=== PATIENT | male | born 1980 | race Caucasian/White ===

== ENCOUNTER 2018-08-03 22:07 | Emergency (ER) | payer MEDICAID, OTHER ==
[2018-08-03 22:15] VITALS: BP 177/104
[2018-08-03] MEDS ORDERED: DOXYcycline CAP(*) 100 MG PO ONE (22:28)
--- NOTE | 2018-08-03 22:28 | ED ---
Bite Injury/Animal - HPI Summary HPI Summary: 38-year-old male presents with tick bite to left thigh today. States he removed the tick from his arm but has head still present on left thigh. denies any rash. no fevers or chills. - History of Current Complaint Chief Complaint: EDGeneral Stated Complaint: TICK PER PT Time Seen by Provider: 08/03/18 22:17 Pain Intensity: 0 - Allergies/Home Medications Allergies/Adverse Reactions: Allergies Allergy/AdvReac Type Severity Reaction Status Date / Time No Known Allergies Allergy Verified 08/03/18 22:11 Home Medications: Home Medications NK [No Home Medications Reported] 08/03/18 [History Confirmed 08/03/18] PMH/Surg Hx/FS Hx/Imm Hx Endocrine/Hematology History: Denies: Hx Anticoagulant Therapy Cardiovascular History: Denies: Hx Myocardial Infarction Infectious Disease History: No Infectious Disease History: Denies: Traveled Outside the [place] in Last 30 Days - Family History Known Family History: Positive: Non-Contributory - Social History Alcohol Use: Occasionally Substance Use Type: Reports: None Review of Systems Negative: Fever Negative: Chest Pain Negative: Shortness Of Breath Positive: Other - tick bite left thigh All Other Systems Reviewed And Are Negative: Yes Physical Exam Triage Information Reviewed: Yes Vital Signs On Initial Exam: Initial Vitals Temp Pulse Resp BP Pulse Ox 99.9 F 93 18 177/104 98 08/03/18 22:10 08/03/18 22:10 08/03/18 22:10 08/03/18 22:10 08/03/18 22:10 Vital Signs Reviewed: Yes Appearance: Positive: Well-Appearing Skin: Positive: Warm, Dry, Other - tick head present in left thigh Head/Face: Positive: Normal Head/Face Inspection ENT: Positive: Pharynx normal Respiratory/Lung Sounds: Positive: Clear to Auscultation, Breath Sounds Present Cardiovascular: Positive: Normal, RRR Musculoskeletal: Positive: Normal Neurological: Positive: Normal Psychiatric: Positive: Normal Diagnostics - Vital Signs Vital Signs Temp Pulse Resp BP Pulse Ox 08/03/18 22:10 99.9 F 93 18 177/104 98 - Laboratory Lab Statement: Any lab studies that have been ordered have been reviewed, and results considered in the medical decision making process. Bite Injury Course/Dx - Course Course Of Treatment: 38-year-old male presents with tick bite to left thigh today. States he removed the tick from his arm but has head still present on left thigh. denies any rash. no fevers or chills. on exam has tick bite present on left thigh with head in place. removed head as best could with the scapula. will give prophylactic dose doxycycline. patient understands agrees with plan. - Diagnoses Differential Diagnosis/HQI/PQRI: Positive: Other - tick, lyme Provider Diagnosis: Tick bite Discharge - Sign-Out/Discharge Documenting (check all that apply): Patient Departure Patient Received Moderate/Deep Sedation with Procedure: No - Discharge Plan Condition: Good Disposition: HOME Patient Education Materials: Tick Bite (ED) Additional Instructions: You have been prophylactically treated for Lyme disease Return to ED if develop any rash or signs of infection - Billing Disposition and Condition Condition: GOOD Disposition: Home
== END 2018-08-03 22:35 | disposition home or self-care (01) ==
LOC: ED 22:07
DX: S70.362A Insect bite (nonvenomous), left thigh, initial encounter (principal); W57.XXXA Bitten or stung by nonvenomous insect and other nonvenomous arthropods, initial encounter
CPT/HCPCS: 99282; A9270-GY